=== PATIENT | female | born 2000 | race Caucasian/White ===

== ENCOUNTER 2024-02-29 14:25 | Outpatient (CLI) | payer OTHER, SELFPAY ==
[2024-02-29 16:47] LABS: HCG,Quantitative 83072 mIU/ml (0-5.42)
== END 2024-02-29 23:59 | disposition home or self-care (01) ==
LOC: LAB 14:31
PROVIDERS: Visit Provider Obstetrics & Gynecology
DX: N92.6 Irregular menstruation, unspecified (principal)
CPT/HCPCS: 36415; 84144; 84702

== ENCOUNTER 2024-03-04 16:42 | Outpatient (CLI) | payer OTHER, SELFPAY | END 2024-03-04 23:59 | disposition home or self-care (01) | LOC: LAB.DROPOF 16:42 | PROVIDERS: PCP Obstetrics & Gynecology; Visit Provider Obstetrics & Gynecology | DX: Z34.90 Encounter for supervision of normal pregnancy, unspecified, unspecified trimester (principal) | CPT/HCPCS: 87086 ==

== ENCOUNTER 2024-03-07 10:57 | Outpatient (CLI) | payer OTHER, SELFPAY ==
[2024-03-07 11:26] LABS: Basophils # 0.1 K/mm3 (0-0.2); Basophils % 0.8 % (0.1-2.0); Eosinophils # 0.1 K/mm3 (0.0-0.4); Eosinophils % 1.4 % (0.1-12.0); Hematocrit 38.6 % (37.0-47.0); Hemoglobin 13.1 g/dL (12.2-16.2); Lymphocytes # 1.9 K/mm3 (0.7-4.5); Mean Corpuscular HGB Conc 33.8 g/dL (31.8-35.4); Mean Corpuscular Hemoglobin 30.4 pg (27.0-31.2); Monocytes # 0.3 K/mm3 (0.1-1.0); Monocytes % 4.2 % (1.7-9.3); Neutrophils # 5.1 K/mm3 (1.8-7.8); Neutrophils % 68.6 % (37.0-80.0); Platelet Count 265 K/mm3 (142-424); Red Cell Distribution Width 13.6 % (11.5-17.5); White Blood Count 7.4 K/mm3 (4.8-10.8)
[2024-03-07 12:20] LABS: Glucose,Fasting 93 mg/dl (74-100)
[2024-03-07 13:04] LABS: HIV (1&2) Antibody Rapid NON REACTIVE
[2024-03-07 13:31] LABS: Glucose 1 Hour 159 mg/dL (74-100)
[2024-03-08 06:11] LABS: Rubella Antibodies, IgG 2.26 index (Immune >0.99)
[2024-03-08 09:31] LABS: HCV Ab Non Reactive (Non Reactive); Hepatitis B Surface Antigen Negative (Negative)
[2024-03-08 10:42] LABS: Rapid Plasma Reagin Ab Titer Non Reactive titer (NonRea<1:1)
== END 2024-03-07 23:59 | disposition home or self-care (01) ==
LOC: LAB 10:58
PROVIDERS: PCP Obstetrics & Gynecology; Visit Provider Obstetrics & Gynecology
DX: Z34.90 Encounter for supervision of normal pregnancy, unspecified, unspecified trimester (principal); Z86.32 Personal history of gestational diabetes
CPT/HCPCS: 36415; 82951; 85025; 86593; 86762; 86850; 87340

== ENCOUNTER 2024-03-17 09:38 | Outpatient (CLI) | payer OTHER, SELFPAY ==
[2024-03-17 10:23] LABS: Glucose,Fasting 103 mg/dl (74-100)
[2024-03-17 12:22] LABS: Glucose 1 Hour 179 mg/dL (74-100); Glucose 2 Hour 158 mg/dL (74-100)
[2024-03-17 13:27] LABS: Glucose 3 Hour 139 mg/dL (74-100)
== END 2024-03-17 23:59 | disposition home or self-care (01) ==
LOC: LAB 09:39
PROVIDERS: Visit Provider Obstetrics & Gynecology
DX: Z86.32 Personal history of gestational diabetes (principal); Z34.90 Encounter for supervision of normal pregnancy, unspecified, unspecified trimester
CPT/HCPCS: 36415; 82951

== ENCOUNTER 2024-04-14 09:57 | Outpatient (CLI) | payer OTHER, SELFPAY ==
[2024-04-14] MEDS: RHO(D) IMMUNE GLOBULIN 1,500 UNIT (300MCG) SYRINGE 300 MCG IM (11:38)
[2024-04-14 11:40] VITALS: BP 132/86; PULSE 89; RESP 18; TEMP 36.8; O2SAT 98
== END 2024-04-14 11:40 | disposition home or self-care (01) ==
LOC: LAB 09:57 → INF 11:20
PROVIDERS: Visit Provider Obstetrics & Gynecology
DX: O46.90 Antepartum hemorrhage, unspecified, unspecified trimester (principal)
CPT/HCPCS: 36415; 96372; J2790

== ENCOUNTER 2024-04-22 13:47 | Outpatient (CLI) | payer OTHER, SELFPAY ==
--- NOTE | 2024-04-22 14:04 | US_ITS ---
PROCEDURE: US OB >= 14 WEEKS FETUS CLINICAL INDICATION: Spotting/Bleeding in Early COMPARISON: No exams were available for comparison FINDINGS: Transabdominal sonographic images of the uterus were obtained. From her established due date she is 16weeks 5days. The following parameters are obtained: Viable Fetus in the cephalic presentation with an anterior placenta grade 1. No evidence of abruption. Average ultrasound age is 17weeks 5days Estimated weight 200g Cervix measures 3.1 cm. Measurements: heart Rate = 161bpm BPD = 17weeks 6days HC = 17weeks 5days AC = 17weeks 4days FL = 17weeks 5days HC/AC is 1.23 FL/BPD is 0.65 FL/AC is 0.22 91 percentile Amniotic fluid: MVP 5.62 cm No obvious anomalies evident.Kidneys, profile, choroid plexus, thalamus, cord insertion, spine, four-chamber heart, three-vessel cord appear normal. IMPRESSION: 1. Viable fetus in the cephalic presentation with an anterior placenta grade 1. 2. The placenta appears intact and there is no evidence of abruption. No evidence of placenta previa. 3. The fluid is within normal limits with an MVP 5.62 cm. 4. biometry is consistent with the dates. 5. Limited anatomical scan appears normal. 6. Repeat ultrasound in 4 weeks for complete anatomical scan. Dictated by: Ruiz Dent MD 04/22/2024 16:58 Ruiz Dent MD in [place] 04/22/2024 16:58
== END 2024-04-22 23:59 | disposition home or self-care (01) ==
LOC: RAD 13:48
PROVIDERS: Visit Provider Obstetrics & Gynecology
DX: O26.852 Spotting complicating pregnancy, second trimester (principal); O09.299 Supervision of pregnancy with other poor reproductive or obstetric history, unspecified trimester; Z86.32 Personal history of gestational diabetes; O99.210 Obesity complicating pregnancy, unspecified trimester; O24.319 Unspecified pre-existing diabetes mellitus in pregnancy, unspecified trimester
CPT/HCPCS: 76805

== ENCOUNTER 2024-07-03 18:00 | Outpatient (CLI) | payer OTHER, SELFPAY ==
[2024-07-03 19:41] VITALS: BMI 37.9
[2024-07-03 19:45] LABS: Appearance,Urine CLEAR (Clear); Bilirubin,Urine Negative (Negative); Blood, Urine 3+ (Negative); Color,Urine YELLOW (Yellow); Glucose,Urine (UA) Negative (Negative); Ketones,Urine 2+ (Negative); Leukocyte Esterase,Urine 2+ (Negative); Microscopic, Urine URINE MICROSCOPIC (MICROSCOPIC); Nitrate,Urine POSITIVE (Negative); PH,Urine 6.5 (5.0-8.5); Protein,Urine 2+ (Negative)
[2024-07-03 20:00] LABS: Amphetamine/Metha Screen,Urine Negative ng/ml (<1000)
[2024-07-03 20:01] VITALS: BP 127/85; PULSE 113; RESP 18; TEMP 37.3; O2SAT 98; BMI 37.9
[2024-07-03 20:01] LABS: Barbiturates Screen,Urine Negative ng/ml (<200); Benzodiazepines Screen,Urine Negative ng/ml (<200)
[2024-07-03 20:02] LABS: Cannabinoid Screen,Urine Negative ng/ml (<50)
[2024-07-03 20:03] LABS: Cocaine Screen,Urine Negative ng/ml (<300); Methadone Screen,Urine Negative ng/ml (<300)
[2024-07-03 20:04] LABS: Opiate Screen,Urine Negative ng/ml (<300)
[2024-07-03 20:05] LABS: Phencyclidine Screen,Urine Negative ng/ml (<25)
[2024-07-03 20:19] LABS: Bacteria,Urine 1+ /lpf; RBC,Urine TNTC #/hpf (0-3); WBC,Urine TNTC #/hpf (0-3)
[2024-07-03] MEDS: CEFTRIAXONE 1 GM 1 GM in 0.9 % SODIUM CHLORIDE 50 ML IV (20:47)
[2024-07-03 20:56] LABS: Basophils % 0.3 % (0.1-2.0); Eosinophils # 0.1 K/mm3 (0.0-0.4); Eosinophils % 0.8 % (0.1-12.0); Hematocrit 41.6 % (37.0-47.0); Hemoglobin 14.3 g/dL (12.2-16.2); Lymphocytes # 1.3 K/mm3 (0.7-4.5); Lymphocytes % 10.5 % (10-50); Mean Corpuscular HGB Conc 34.3 g/dL (31.8-35.4); Mean Corpuscular Hemoglobin 30.3 pg (27.0-31.2); Mean Corpuscular Volume 88.4 fl (81-99); Mean Platelet Volume 8.5 fl (7.4-10.4); Monocytes # 0.4 K/mm3 (0.1-1.0); Monocytes % 3.1 % (1.7-9.3); Neutrophils # 10.7 K/mm3 (1.8-7.8); Neutrophils % 85.3 % (37.0-80.0); Platelet Count 243 K/mm3 (142-424); Red Blood Count 4.71 M/mm3 (4.20-5.40); Red Cell Distribution Width 14.2 % (11.5-17.5); White Blood Count 12.6 K/mm3 (4.8-10.8)
[2024-07-03 20:59] LABS: MANUAL DIFFERENTIAL MANUAL DIFFERENTIAL (MANUAL DIFF)
[2024-07-03 21:08] LABS: Chloride 107 mmol/L (98-107)
[2024-07-03 21:09] LABS: Potassium 3.8 mmoL/L (3.5-5.1); Sodium 136 mmol/L (136-145)
[2024-07-03 21:11] LABS: Alanine Aminotransferase 48 U/L (12-78); Anion Gap 12.8 mEq/L (5-15); Aspartate Amino Transferase 43 U/L (14-36); Blood Urea Nitrogen 8 mg/dl (7-17); Carbon Dioxide 20 mmol/L (22.0-30.0); Creatinine Clearance Estimated 270 mL/min (50-200); Estimated Glomerular Filt Rate 154 ml/min (>60); GFR (African American) 187 ML/MIN (>60)
[2024-07-03 21:12] LABS: Albumin/Globulin Ratio 1.2 (1.1-1.8); Alkaline Phosphatase 98 U/L (38-126); Bilirubin,Total 0.5 mg/dl (0.2-1.3); Calcium 8.9 mg/dl (8.4-10.2); Globulin 3.3 g/dL (1.3-3.2); Glucose 91 mg/dl (74-100); Total Protein,Serum 7.3 g/dl (6.3-8.2)
[2024-07-03] MEDS: LACTATED RINGERS 1000ML 1,000 ML 999 ML IV (21:33)
--- NOTE | 2024-07-03 21:53 | P.PN_ITS ---
Subjective *Date: 07/04/24 *Time: 13:16 Interval history: Kelly May is a 24yo who presented the evening after having blood in her urine. Reports that she woke up and had a little bit of pelvic pain and pressure for about an hour after that she went to pee and noticed that there was blood in her urine. She denies any leakage of fluid, contractions, or vaginal bleeding. She does endorse good movement. She states that since being here she has had pelvic pressure that feels similar to the pressure that she has with a urinary tract infection. She reports dysuria. She denies any respiratory symptoms or GI symptoms. Exam Data for Last 24 hours Vital signs and Labs for Last 24 Hours: Temp Pulse Resp BP Pulse Ox O2 Del Method 99.2 F 113 H 18 127/85 98 Room Air 07/03/24 20:01 07/03/24 20:01 07/03/24 20:01 07/03/24 20:01 07/03/24 20:01 07/03/24 20:01 Laboratory Results - last 24 hr 07/03/24 19:20: Urine Color Yellow, Urine Appearance Clear, Urine pH 6.5, Ur Specific [place] 1.020, Urine Protein 2+ A, Urine Glucose (UA) Negative, Urine Ketones 2+, Urine Blood 3+ A, Urine Nitrate Positive, Urine Bilirubin Negative, Urine Urobilinogen 1.0, Ur Leukocyte Esterase 2+ A, Urine RBC Tntc, Urine WBC Tntc, Ur Squamous Epith Cells 3-5, Urine Bacteria 1+, Urine Opiates Screen Negative, Urine Methadone Screen Negative, Ur Barbituates Screen Negative, Ur Phencyclidine Scrn Negative, Ur Amphetamines Screen Negative, U Benzodiazepines Scrn Negative, Urine Cocaine Screen Negative, U Marijuana (THC) Screen Negative 07/03/24 20:40: WBC 12.6 H, RBC 4.71, Hgb 14.3, Hct 41.6, MCV 88.4, MCH 30.3, MCHC 34.3, RDW 14.2, Plt Count 243, MPV 8.5, Neut % (Auto) 85.3 H, Lymph % (Auto) 10.5, [place] % (Auto) 3.1, Eos % (Auto) 0.8, Baso % (Auto) 0.3, Neut # ( Auto) 10.7 H, Lymph # (Auto) 1.3, [place] # (Auto) 0.4, Eos # (Auto) 0.1, Baso # (Auto) 0.0, Sodium 136, Potassium 3.8, Chloride 107, Carbon Dioxide 20 L, Anion Gap 12.8, BUN 8, Creatinine 0.50 L, Estimated Creat Clear 270, Estimated GFR 154, Est GFR ( Amer) 187, Glucose 91, Calcium 8.9, Total Bilirubin 0.5, AST 43 H, ALT 48, Alkaline Phosphatase 98, Total Protein 7.3, Albumin 4.0, Globulin 3.3 H, Albumin/Globulin Ratio 1.2 I & O for Last 24 hours: Intake & Output 06/30/24 07/01/24 07/02/24 07/03/24 23:59 23:59 23:59 23:59 Weight 214 lb Narrative: General: patient is alert oriented in no acute distress and responds appropriately to questions. Appears to be in minimal pain. Sitting up in the bed and doing well HEENT: NCAT, EOMI, moist mucous membranes, neck supple with full ROM Cardiovascular: RRR +S1/S2, no murmurs or rubs Pulmonary: Clear to auscultation bilaterally, nonlabored breathing, symmetric chest rise Abdominal: Gravid uterus. No abdominal tenderness with palpation. No rebound or guarding Back: Negative for costovertebral angle tenderness bilaterally Extremities: no edema, no tenderness or cyanosis noted Skin: Normal turgor, intact, warm. Negative for erythema, pallor, petechia, or lesions Neurologic: Negative for sensory or motor deficit Psychiatric: Normal affect, normal thought process, good judgment and insight, no depression or anxious mood appreciated. Assessment and Plan *Assessment and plan (1) UTI (urinary tract infection): Status: Acute Category: Medical Code(s): N39.0 - Urinary tract infection, site not specified Plan On arrival the patient had a temperature of 99.2 and maternal tachycardia at 113 bpm. This improved during her triage stay here. She reported to me that she has only had bleeding with urination and no vaginal bleeding. After I discussed the case with the RN it was reported to them that the bleeding was possible of unknown origin. Decision was made to get a type and screen and give her her RhoGAM. Her UA was suggestive of urinary tract infection. She received 1 dose of Rocephin and 1 L of fluids. Given the pelvic pain and pressure and FFN was collected and was negative. Her cervical exam was closed, thick, high. Of note a CMP was checked for evaluation of creatinine. Creatinine was noted to be normal but there was an incidental small elevation in her LFTs. CBC reviewed and a small leukocytosis noted. Patient was given precautions to rest and drink lots of fluids. Strict return precautions including but not limited to: Increased pain, bleeding, decreased movement, contractions, nausea, vomiting, fevers. She will call the office in the morning so that she can have an appointment to be seen on Sunday or Sunday
[2024-07-03 22:00] VITALS: BP 121/68; PULSE 85; RESP 18; TEMP 36.8; O2SAT 100
[2024-07-03 22:09] LABS: Lymphocytes % 19 % (10-50); Monocytes % 4 % (2-9); Neutrophils % 77 % (42-76); Platelet Estimate Normal; RBC Morphology Normal; Total Cells Counted 100
[2024-07-03 22:27] LABS: Fetal Fibronectin (Rapid) Negative (Negative)
[2024-07-03] MEDS: RHO(D) IMMUNE GLOBULIN 1,500 UNIT (300MCG) SYRINGE 300 MCG IM (23:25)
== END 2024-07-03 23:35 | disposition home or self-care (01) ==
LOC: OBOUT 18:03 → OB 18:04
PROVIDERS: Visit Provider Obstetrics & Gynecology
DX: O26.893 Other specified pregnancy related conditions, third trimester (principal); O23.42 Unspecified infection of urinary tract in pregnancy, second trimester; N39.0 Urinary tract infection, site not specified; Z3A.27 27 weeks gestation of pregnancy; Z29.13 Encounter for prophylactic Rho(D) immune globulin; R31.9 Hematuria, unspecified
CPT/HCPCS: 36415; 80053; 80307; 81001; 82731; 85007; 85025; 85027; 86850; 87086; G0463; J0696; J2790; J7120

== ENCOUNTER 2024-08-29 13:50 | Outpatient (CLI) | payer OTHER, SELFPAY | END 2024-08-29 23:59 | disposition home or self-care (01) | LOC: LAB.DROPOF 09-01 13:17 | PROVIDERS: PCP Obstetrics & Gynecology; Visit Provider Obstetrics & Gynecology | DX: O24.414 Gestational diabetes mellitus in pregnancy, insulin controlled (principal); Z3A.35 35 weeks gestation of pregnancy | CPT/HCPCS: 86403 ==

== ENCOUNTER 2024-09-15 09:43 | Emergency (ER) | payer OTHER, SELFPAY ==
[2024-09-15 09:55] VITALS: BP 148/94; PULSE 78; RESP 18; TEMP 36.9; O2SAT 97; BMI 36.6
--- NOTE | 2024-09-15 10:05 | ED_ITS ---
Discharge Plan Disposition Patient Disposition: Home, Self-Care Condition: Good Prescriptions Prescriptions: New amoxicillin 500 mg capsule 500 mg PO TID 7 Days Qty: 21 0RF ciprofloxacin-dexamethasone 0.3-0.1 % drops,suspension 4 drp otic (ear) BID 7 Days Qty: 7.5 0RF Rx Instructions: in right ear as directed No Action (DME) lancets [OneTouch Delica Plus Lancet] 33 gauge misc See Rx Instructions .ROUTE .MEDSUPPLY Qty: 100 Patient Comments: USE DIRECTED TO test blood sugar FOUR TIMES DAILY Rx Instructions: As directed (DME) Dexcom G7 Sensor Device See Rx Instructions .ROUTE .MEDSUPPLY Qty: 1 Patient Comments: USE DIRECTED TO TEST BLOOD GLUCOSE LEVEL CHANGE SENSOR EVERY 10 DAYS Rx Instructions: As directed insulin glargine [Lantus Solostar U-100 Insulin] 100 unit/mL (3 mL) insulin pen 15 unit SQ DAILY Patient Comments: INJECT 10 UNITS UNDER THE SKIN INTO THE APPROPRIATE AREA DIRECTED EVERY NIGHT (DME) pen needle, diabetic [BD Ultra-Fine Mini Pen Needle] 31 gauge x 3/16 needle See Rx Instructions .ROUTE .MEDSUPPLY Qty: 1200 Patient Comments: USE DIRECTED FOUR TIMES DAILY Rx Instructions: As directed (DME) OneTouch Verio test strips Strip See Rx Instructions .ROUTE .MEDSUPPLY Qty: 10 Patient Comments: USE DIRECTED TO test blood sugar FOUR TIMES DAILY Rx Instructions: As directed (DME) blood-glucose meter [OneTouch Verio Flex meter] Mis See Rx Instructions .ROUTE .MEDSUPPLY Qty: 1 Patient Comments: USE DIRECTED FOUR TIMES DAILY test blood sugar fasting AND 2 hours AFTER each meal Rx Instructions: As directed Referrals Follow up/Referrals: Provider,Referral, MD [Primary Care Provider] - See instructions Activity Restrictions/Add. Instructions Additional Instructions/Restrictions: Take medication as prescribed Use ear drops as prescribed Follow up with your Family Doctor if needed Return if needed Clinical Impressions Clinical Impression: Otitis media Qualifiers: Otitis media type: unspecified Laterality: right Qualified Code(s): H66.91 - Otitis media, unspecified, right ear Otitis externa Qualifiers: Otitis externa type: unspecified type Chronicity: unspecified Laterality: right Qualified Code(s): H60.91 - Unspecified otitis externa, right ear Instructions Patient Instructions: Middle Ear Infection, DI for Otitis Externa Print Language Print Language: Kazakh Discharge ED Provider: Laura Salinas [facility] [place] HPI General Stated complaint: Pain in Right ear Mode of Arrival: Ambulatory Source of Information: Patient Limitations: No Limitations Time Seen by Provider: 09/15/24 10:05 Description of Symptoms (Recalled from Triage Doc. by RN): PATIENT C/O RIGHT EAR PAIN SINCE YESTERDAY. PATIENT IS HEENT Symptoms (Recalled from RN notes): Yes Resp Symptoms (Recalled from RN notes): No Skin Symptoms (Recalled from RN notes): No MS Symptoms (Recalled from RN notes): No Functional Status (Recalled from RN notes): WNL History of Present Illness Provider Complaint: Patient is 37 wks OB states that she started yesterday with severe tenderness in her right ear and hurts when she touches her ear and it is throbbing down inside her right ear Today it hurts to even touch it Related Data Home Medications ?Medication ?Instructions ?Recorded ?Confirmed blood sugar diagnostic (OneTouch #10 ea 04/29/24 09/15/24 Verio test strips) blood-glucose meter (OneTouch #1 ea 04/29/24 09/15/24 Verio Flex Meter) blood-glucose sensor (Dexcom G7 #1 ea 04/29/24 09/15/24 Sensor device) insulin glargine 100 unit/mL (3 15 unit SQ DAILY 04/29/24 09/15/24 mL) subcutaneous pen (Lantus Solostar U-100 Insulin) lancets 33 gauge (OneTouch Delica #100 ea 04/29/24 09/15/24 Plus Lancet) pen needle, diabetic 31 gauge x #1,200 04/29/24 09/15/24 3/16 (BD Ultra-Fine Mini Pen Needle) Previous Rx's ?Medication ?Instructions ?Recorded amoxicillin 500 mg capsule 500 mg PO TID 7 days #21 caps 09/15/24 ciprofloxacin 0.3 %-dexamethasone 4 drp otic (ear) BID 7 days #7.5 mL 09/15/24 0.1 % ear drops,suspension Allergies Allergy/AdvReac Type Severity Reaction Status Date / Time No Known Allergies Allergy Verified 09/12/24 08:49 Worker's Comp Is this a Worker's Comp case?: No [facility] Disclaimer: The information contained in this section may have been updated after the patient was seen, as this information can be updated by other users. Medical History Rh negative state in antepartum period Maternal pregestational diabetes classes B through R, antepartum History of gestational diabetes in prior , currently Maternal obesity affecting , antepartum Surgical History No significant past surgical history Family History Other No significant family history Social History Smoking Status: Former smoker alcohol intake: never current occupational status: employed Travel in the last 8 weeks: None Have you lived/traveled outside US in past 30 days?: No Contact w/someone who lives/traveled outside US past 30 days?: No Exposure to someone with infectious disease in past 14 days?: No Do you have a fever (greater than 100.4 F or 38 C)?: No Have you tested positive for COVID-19: No Exposed to someone with COVID-19 in past 14 days?: No Do you have a sore throat?: No Do you have a cough?: No Do you have any weakness?: No Do you have any diarrhea?: No Are you experiencing any unusual bleeding?: No Do you have any muscle aches/pain?: No Do you have any abdominal pain?: No Are you experiencing loss of taste or smell?: No ROS Obtained: Yes All systems reviewed & no additional complaints except as documented and Yes Systems reviewed as appropriate & no additional complaints except as documented ENT Ears, Nose, Mouth, and Throat: Reports system reviewed and no additional complaints, except as documented, Reports as per HPI and Reports otalgia (pain and tenderness right ear) Cardiovascular Cardiovascular: Reports system reviewed and no additional complaints, except as documented and Reports as per HPI Respiratory Respiratory: Reports system reviewed and no additional complaints, except as documented and Reports as per HPI Gastrointestinal Gastrointestingal: Reports system reviewed and no additional complaints, except as documented and as per HPI Physical Exam General General appearance: alert and in no apparent distress ENT ENT exam: Present mucous membranes moist Expanded ENT Exam External ear exam: Present pain with movement (right) and external tenderness (right) TM/Canal exam: Right TM: loss of landmarks (canal red swollen unable to visualize TM) Respiratory Respiratory exam: Present normal lung sounds bilaterally; Absent respiratory distress or wheezes Cardiovascular Cardiovascular exam: Present regular rate, normal rhythm and normal heart sounds Neurological Exam Neurological exam: Present alert, oriented X3 and normal gait Medical Decision Making Medical Records Screening: Per USPSTF and CDC recommendations, given the prevalence of disease in our region, it is our hospital?s policy to screen for HIV and viral Hepatitis for all patients aged 18 and over and those with ongoing risk factors. Dylan Inquiry Pt receiving controlled substance: No Dylan was queried for this patient: No Vital Signs: 09/15/24 09:55 Temperature 98.5 F Temperature Source Oral Pulse Rate [Left Brachial] 78 Respiratory Rate 18 Blood Pressure [Left Arm] 148/94 H Blood Pressure Mean [Left Arm] 112 Blood Pressure Source [Left Arm] Automatic Cuff Blood Pressure Position [Left Arm] Sitting 02 Sat by Pulse Oximetry 97 Oxygen Delivery Method Room Air Medical Decision Narrative: Medication discussed with pharmacy
[2024-09-15 10:22] VITALS: BP 148/94; PULSE 78; RESP 17; TEMP 36.9; O2SAT 97
== END 2024-09-15 10:23 | disposition home or self-care (01) ==
PROVIDERS: Emergency Provider Nurse Practitioner
DX: H66.91 Otitis media, unspecified, right ear (principal); H60.91 Unspecified otitis externa, right ear
CPT/HCPCS: 99212; G0381

== ENCOUNTER 2024-09-24 13:04 | Inpatient (IN) | payer OTHER, SELFPAY ==
--- NOTE | 2024-09-24 13:26 | HMH.PHAINT1 ---
Pharmacy Intervention Comments: MEDICATION RECONCILIATION COMPLETED ON PATIENT USING EXTERNAL FILL HISTORY FROM PHARMACY. -JONNATHAN EDWARDS, OSWALDOD
[2024-09-24 13:48] LABS: Microscopic, Urine URINE MICROSCOPIC (MICROSCOPIC)
[2024-09-24 14:02] VITALS: BP 118/75; PULSE 108; RESP 19; TEMP 36.9; O2SAT 99; BMI 36.6
[2024-09-24 14:05] LABS: Appearance,Urine SL CLOUDY (Clear); Blood, Urine TRACE-I (Negative); Color,Urine YELLOW (Yellow); Glucose,Urine (UA) Negative (Negative); Ketones,Urine 2+ (Negative); Leukocyte Esterase,Urine 2+ (Negative); Nitrate,Urine Negative (Negative); Protein,Urine Negative (Negative); Specific Gravity, Urine 1.025 (1.005-1.030); Urobilinogen,Urine 0.2 EU/dl (0.2)
[2024-09-24 14:06] VITALS: BMI 36.6
[2024-09-24 14:07] LABS: Bilirubin,Urine 1+ (Negative)
[2024-09-24 14:10] VITALS: BMI 36.6
[2024-09-24 14:15] LABS: Basophils % 0.4 % (0.1-2.0); Eosinophils % 0.4 % (0.1-12.0); Hematocrit 34.5 % (37.0-47.0); Hemoglobin 11.7 g/dL (12.2-16.2); Lymphocytes # 1.2 K/mm3 (0.7-4.5); Lymphocytes % 17.1 % (10-50); Mean Corpuscular HGB Conc 33.9 g/dL (31.8-35.4); Mean Corpuscular Hemoglobin 29.3 pg (27.0-31.2); Mean Corpuscular Volume 86.3 fl (81-99); Mean Platelet Volume 11.9 fl (7.4-10.4); Monocytes # 0.4 K/mm3 (0.1-1.0); Monocytes % 5.4 % (1.7-9.3); Neutrophils # 5.5 K/mm3 (1.8-7.8); Neutrophils % 76.4 % (37.0-80.0); Platelet Count 222 K/mm3 (142-424); Red Cell Distribution Width 13.7 % (11.5-17.5); White Blood Count 7.3 K/mm3 (4.8-10.8)
[2024-09-24 14:17] LABS: Barbiturates Screen,Urine Negative ng/ml (<200); Benzodiazepines Screen,Urine Negative ng/ml (<200)
[2024-09-24 14:18] LABS: Amphetamine/Metha Screen,Urine Negative ng/ml (<1000)
[2024-09-24 14:19] LABS: Cannabinoid Screen,Urine Negative ng/ml (<50); Methadone Screen,Urine Negative ng/ml (<300)
[2024-09-24 14:20] LABS: Cocaine Screen,Urine Negative ng/ml (<300)
[2024-09-24 14:21] LABS: Opiate Screen,Urine Negative ng/ml (<300); Phencyclidine Screen,Urine Negative ng/ml (<25)
[2024-09-24 14:27] LABS: Bacteria,Urine 4+ /lpf; RBC,Urine Occasional #/hpf (0-3); Squamous Epithelial Cell,Urine 20-50 #/hpf (0-5); WBC,Urine 20-50 #/hpf (0-3)
[2024-09-24] MEDS: miSOPROStol 100MCG TABLET 50 MCG PO ×2 (14:43→21:03)
[2024-09-24 14:56] LABS: POC Glucose,Bedside 96 (70-110)
[2024-09-24 21:01] VITALS: BP 118/72; PULSE 70; RESP 16; TEMP 36.7; O2SAT 100
[2024-09-24 22:22] LABS: POC Glucose,Bedside 68 (70-110)
[2024-09-25] MEDS: miSOPROStol 100MCG TABLET 50 MCG PO (03:08)
[2024-09-25 03:10] VITALS: BP 113/69; PULSE 63; RESP 17; TEMP 36.6; O2SAT 100
[2024-09-25] MEDS: LACTATED RINGERS 1000ML 1,000 ML 250 ML IV (08:35)
--- NOTE | 2024-09-25 08:54 | P.HP_ITS ---
OB - H&P: HPI Antepartum History of Present Illness Chief complaint: Scheduled induction of labor History of present illness: Ms Kelly May is a 24 yo at 39w0d who presents to [facility] L&D for scheduled induction of labor secondary to Pregestational diabetes. She has been taking insulin 15 units nightly. [facility] helped manage her care this . She has had good care. also complicated by maternal obesity. GBS negative. Last ultrasound with [facility] 09/10/24 - BPP 8/, EFW 20%ile, CARMELINA WNL, cephalic presentation. History of Present Criteria for establishing EDC:: LMP confirmed by 1st trimester US care: good care Ultrasounds: normal mid trimester US Obstetrical complications: other (pregestational diabetes) Labs Blood type: O (+) positive Rubella: immune RPR/VDRL: nonreactive GBS status: negative HBsAG: negative [facility] Disclaimer: The information contained in this section may have been updated after the patient was seen, as this information can be updated by other users. Medical History (Updated 09/25/24 @ 10:12 by Aelsia Woods DO) 39 weeks gestation of Rh negative state in antepartum period Maternal pregestational diabetes classes B through R, antepartum History of gestational diabetes in prior , currently Maternal obesity affecting , antepartum Surgical History No significant past surgical history Family History Other No significant family history Social History Smoking Status: Former smoker alcohol intake: never current occupational status: unemployed Travel in the last 8 weeks: None Have you lived/traveled outside US in past 30 days?: No Contact w/someone who lives/traveled outside US past 30 days?: No Exposure to someone with infectious disease in past 14 days?: No Do you have a fever (greater than 100.4 F or 38 C)?: No Have you tested positive for COVID-19: No Exposed to someone with COVID-19 in past 14 days?: No Do you have a sore throat?: No Do you have a cough?: No Do you have any weakness?: No Are you experiencing any nausea/vomitting?: No Do you have any diarrhea?: No Are you experiencing any unusual bleeding?: No Do you have any muscle aches/pain?: No Do you have any abdominal pain?: No Are you experiencing loss of taste or smell?: No Other Medical History Have you received the Flu Vaccine for this season: No Have you received the Pneumonia Vaccine: No Review of Systems Review of Systems Review of systems:: pertinent systems reviewed and negative unless documented below Meds Home Medications and Allergies Home Medications ?Medication ?Instructions ?Recorded ?Confirmed ?Type blood sugar diagnostic (OneTouch #10 04/29/24 09/24/24 History Verio test strips) blood-glucose meter (OneTouch #1 04/29/24 09/24/24 History Verio Flex Meter) blood-glucose sensor (DexBigvest G7 #1 04/29/24 09/24/24 History Sensor device) insulin glargine 100 unit/mL (3 15 unit SQ DAILY 04/29/24 09/24/24 History mL) subcutaneous pen (Lantus Solostar U-100 Insulin) lancets 33 gauge (OneTouch Delica #100 04/29/24 09/24/24 History Plus Lancet) pen needle, diabetic 31 gauge x #1,200 04/29/24 09/24/24 History 3/16 (BD Ultra-Fine Mini Pen Needle) New Prescriptions to Start Prescriptions: Allergies Allergy/AdvReac Type Severity Reaction Status Date / Time No Known Allergies Allergy Verified 09/22/24 10:03 OB - H&P: Exam Physical Exam Vital signs: Temp Pulse Resp BP Pulse Ox O2 Del Method 97.9 F 63 17 113/69 100 Room Air 09/25/24 03:10 09/25/24 03:10 09/25/24 03:10 09/25/24 03:10 09/25/24 03:10 09/25/24 03:10 Constitutional no acute distress and cooperative Routine HEENT Exam Head: Present normocephalic and atraumatic Eye: Absent conjunctivae pink ENT: Present mucous membranes moist Routine Neck Exam Present full ROM Routine Respiratory Exam Present CTA bilaterally and normal respiratory effort Routine Cardiovascular Exam Present RRR Routine Abdominal Exam Present soft (Gravid); Absent tenderness Routine Rectal Exam Patient deferred: visual exam Routine Exam External: Present normal urethra appearance; Absent erythema, swelling, ten derness, lesions, lacerations or vulvar erythema Routine Extremities Exam Present full ROM; Absent edema or calf tenderness Routine Neurological Exam Present alert, moving all extremities and normal speech Routine Psychiatric Exam Present normal affect and cooperative Detailed Labor and Delivery Exam Dilation (cm): 3 Effacement (%): 60 Cervix position: anterior station: -3 Consistency: soft Membranes: artificially ruptured (amniotomy performed with [place] at 0720) Amniotic fluid: clear Baseline heart rate: 130 monitor accelerations: Present monitor decelerations: None shelter variability: Average (6-10) Contraction frequency (min): 4 Tachysystole: No OB - Results Labs Labs: Short CBC 09/24/24 Range/Units 13:40 WBC 7.3 (4.8-10.8) K/mm3 Hgb 11.7 L (12.2-16.2) g/dL Hct 34.5 L (37.0-47.0) % Plt Count 222 (142-424) K/mm3 Urine 09/24/24 Range/Units 13:40 Urine Color Yellow (Yellow) Urine Appearance Sl cloudy (Clear) Urine pH 6.0 (5.0-8.5) Ur Specific [place] 1.025 (1.005-1.030) Urine Protein Negative (Negative) Urine Glucose (UA) Negative (Negative) OB - A/P Antepartum (1) 39 weeks gestation of : Status: Acute (2) Maternal pregestational diabetes classes B through R, antepartum: Status: Acute (3) Maternal obesity affecting , antepartum: Status: Acute (4) Rh negative state in antepartum period: Status: Acute Additional Plan Planning to breastfeed?: Yes Plan: induction Additional Information:: Admit to [facility] L&D for induction of labor Induction with Cytotec followed by Pitocin GBS negative Close monitoring Anticipate
[2024-09-25] MEDS: BUTORPHANOL TARTRATE 1 MG/ML VIAL IV (09:09)
[2024-09-25] MEDS: ONDANSETRON 4MG/2ML VIAL 4 MG IV (09:10)
[2024-09-25] MEDS: DEXTROSE 5%-LACTATED RINGERS 1,000 ML 125 ML IV (09:13)
[2024-09-25] MEDS: OXYTOCIN/RINGERS LACTATE 30 UNITS/500 ML BAG IV (09:14)
--- NOTE | 2024-09-25 10:55 | P.PNANES_ITS ---
[facility] Disclaimer: The information contained in this section may have been updated after the patient was seen, as this information can be updated by other users. Medical History (Updated 09/25/24 @ 10:12 by Alesia Woods DO) 39 weeks gestation of Rh negative state in antepartum period Maternal pregestational diabetes classes B through R, antepartum History of gestational diabetes in prior , currently Maternal obesity affecting , antepartum Surgical History No significant past surgical history Family History Other No significant family history Social History Smoking Status: Former smoker alcohol intake: never substance use type: denies use current occupational status: unemployed Travel in the last 8 weeks: None [facility] Anesthesia Checklist Patient Identification Patient Identification: Arm Band Structural Data Admitted From: Inpatient Planned Operative Procedure/s: Labor Epidural Consent for Planned Operative Procedure(s) Verified: Yes Verified Documents: Surgical Consent and History and Physical Additional verifications Anesthesia Reactions: No Neurological Assessment Level of Consciousness: Awake, Alert and Appropriate Anesthesia Plan Anesthesia Risk discussed: Yes Anesthesia Plan: Verified ASA Class: II Anesthesia Type: Epidural
--- NOTE | 2024-09-25 13:56 | EXP.DN ---
Delivery Note Delivery Date:: 09/25/24 Delivery Time:: 13:28 Anesthesia Type: Epidural Was labor medically induced?: No Induction method: per misoprostol protocol Gestational age (weeks): 39 delivered prior to 39 weeks?: No Gender: Male at 1 minute: 9 at 5 minutes: 9 LAC or MLE?: LAC Delivery Procedure:: Mom complete with epidural. Baby delivered spontaneously with RN at bedside. No nuchal cord. Baby placed on maternal abdomen, mouth and nares bulb suctioned, warmed/dried and stimulated. Delayed cord clamping was performed for 60 seconds. Cord was clamped and cut. Cord blood was obtained. Placenta delivered spontaneously and intact. Placental calcifications noted. Placenta will be sent to pathology for review. Second degree perineal laceration repaired with 3-0 Vicryl. Mom and baby were skin to skin and doing well after delivery. Live male baby, Man, weighing 7 lb 0 oz APGARs 9 (1 min), 9 (5 min) EBL 100 mL Placental Delivery Description: Spontaneous
[2024-09-25] MEDS: OXYTOCIN/RINGERS LACTATE 30 UNITS/500 ML BAG 40 UNITS IV (13:59)
[2024-09-25 14:30] LABS: RPR W/RFX Titers Nonreactive (Nonreactive)
[2024-09-25] MEDS: LANOLIN CREAM 40GM TP (15:32)
[2024-09-25] MEDS: BENZOCAINE-MENTHOL SPRAY 56GM CAN TP (15:32)
[2024-09-25] MEDS: IBUPROFEN 400 MG TABLET 800 MG PO ×2 (15:32→22:53)
[2024-09-25 16:31] VITALS: BP 117/65; PULSE 84; RESP 17; TEMP 36.8; O2SAT 97
[2024-09-25] MEDS: PRENATAL MULTIVITAMIN W/IRON 1 EACH PO (19:13)
[2024-09-25 19:28] LABS: POC Glucose,Bedside 176 (70-110)
[2024-09-25 21:00] VITALS: BP 120/66; PULSE 75; RESP 17; TEMP 36.8; O2SAT 98
[2024-09-25 21:11] LABS: POC Glucose,Bedside 105 (70-110)
[2024-09-25] MEDS: ACETAMINOPHEN 500MG TAB 1000 MG PO (22:53)
[2024-09-26 04:43] VITALS: BP 121/81; PULSE 81; RESP 17; TEMP 36.7; O2SAT 98
[2024-09-26 07:18] LABS: Basophils % 0.3 % (0.1-2.0); Eosinophils # 0.1 K/mm3 (0.0-0.4); Eosinophils % 0.9 % (0.1-12.0); Hematocrit 29.3 % (37.0-47.0); Hemoglobin 9.7 g/dL (12.2-16.2); Lymphocytes % 25.5 % (10-50); Mean Corpuscular HGB Conc 33.1 g/dL (31.8-35.4); Mean Corpuscular Hemoglobin 29.1 pg (27.0-31.2); Mean Platelet Volume 11.7 fl (7.4-10.4); Monocytes # 0.5 K/mm3 (0.1-1.0); Monocytes % 6.4 % (1.7-9.3); Neutrophils # 5.3 K/mm3 (1.8-7.8); Neutrophils % 66.3 % (37.0-80.0); Platelet Count 184 K/mm3 (142-424); Red Blood Count 3.33 M/mm3 (4.20-5.40); White Blood Count 7.9 K/mm3 (4.8-10.8)
[2024-09-26 07:29] LABS: Glucose,Random 68 mg/dL (74-100)
[2024-09-26 07:45] VITALS: BP 122/76; PULSE 74; RESP 16; TEMP 36.6; O2SAT 98
[2024-09-26] MEDS: IBUPROFEN 400 MG TABLET 800 MG PO (10:36)
--- NOTE | 2024-09-26 13:09 | EXP.ACUTE.PN ---
Subjective *Date: 09/26/24 *Time: 13:26 Interval history: PPD # 1 s/p Feeling well. Pain controlled. Breast feeding. Lochia is appropriate. Voiding without difficulty and passing flatus. Tolerating regular diet. Denies fever/chills, chest pain and shortness of breath. No headaches, vision changes, lightheadedness/dizziness. No lower extremity swelling. Ambulating well ad lea. Medical Exam Vital signs and Labs for Last 24 Hours: Vital Signs Temp Pulse Resp BP Pulse Ox O2 Del Method 09/26/24 07:45 97.8 F 74 16 122/76 98 Room Air 09/26/24 04:43 98.1 F 81 17 121/81 98 Room Air 09/25/24 21:00 98.3 F 75 17 120/66 98 Room Air 09/25/24 16:31 98.2 F 84 17 117/65 97 Room Air Laboratory Results - last 24 hr 09/24/24 13:40: RPR w/Rflx to Titer Nonreactive 09/25/24 19:20: POC Glucose 176 H 09/25/24 20:59: POC Glucose 105 09/26/24 07:04: WBC 7.9, RBC 3.33 L, Hgb 9.7 L, Hct 29.3 L, MCV 88.0, MCH 29.1, MCHC 33.1, RDW 14.0, Plt Count 184, MPV 11.7 H, Neut % (Auto) 66.3, Lymph % (Auto) 25.5, [place] % (Auto) 6.4, Eos % (Auto) 0.9, Baso % (Auto) 0.3, Neut # (Auto) 5.3, Lymph # (Auto) 2.0, [place] # (Auto) 0.5, Eos # (Auto) 0.1, Baso # (Auto) 0.0, Random Glucose 68 L I & O for Labs for Last 24 Hours: Intake & Output 09/23/24 09/24/24 09/25/24 09/26/24 23:59 23:59 23:59 23:59 Weight 207 lb Microbiology Reports for the Last 24 Hours: Microbiology 09/24/24 13:40 Urine,Clean Catch Urine Culture - Final Multiple organisms, suggests contamination. Head: Present atraumatic and normocephalic ENT: Present mucous membranes moist Neck: Present normal inspection and full ROM Respiratory: Present CTA bilaterally and normal respiratory effort Cardiac: Present Reg Rate and Rhythm GI: Present soft; Absent distention or tenderness Comments:: Uterine fundus firm and below umbilicus Rectal (female): Present deferred (female): Present deferred Extremities: Present full ROM and edema (+1 bilateral lower extremity edema); Absent calf tenderness Neuro: Present alert, awake and moves all extremities Assessment and Plan *Assessment and plan (1) Status post normal vaginal delivery: Status: Acute Category: Medical (2) 39 weeks gestation of : Status: Acute Category: Medical Code(s): Z3A.39 - 39 weeks gestation of (3) Maternal pregestational diabetes classes B through R, antepartum: Status: Acute Category: Medical Code(s): O24.319 - Unspecified pre-existing diabetes mellitus in , unspecified trimester (4) Maternal obesity affecting , antepartum: Status: Acute Qualifiers: Obesity type affecting : unspecified obesity Qualified Code(s): O99.210 - Obesity complicating , unspecified trimester Category: Medical Code(s): O99.210 - Obesity complicating , unspecified trimester (5) Acute blood loss anemia: Status: Acute Category: Medical Code(s): D62 - Acute posthemorrhagic anemia Plan Doing well Continue routine care Encouraged increased ambulation Plan d/c home PPD # 2
[2024-09-26 20:26] VITALS: BP 139/76; PULSE 79; RESP 18; TEMP 36.9; O2SAT 99
[2024-09-27 04:33] VITALS: BP 125/78; PULSE 80; RESP 17; TEMP 36.6; O2SAT 99
[2024-09-27] MEDS: IBUPROFEN 400 MG TABLET 800 MG PO (04:42)
[2024-09-27 08:21] VITALS: BP 129/71; PULSE 80; RESP 18; TEMP 36.8; O2SAT 98
--- NOTE | 2024-09-27 13:25 | EXP.DC.SUM ---
General Admission date:: 09/24/24 Discharge date: 09/27/24 HPI HPI HPI: Ms Kelly May is a 24 yo at 39w0d who presents to [facility] L&D for scheduled induction of labor secondary to Pregestational diabetes. She has been taking insulin 15 units nightly. [facility] helped manage her care this . She has had good care. also complicated by maternal obesity. GBS negative. Last ultrasound with [facility] 09/10/24 - BPP 8/8, EFW 20%ile, CARMELINA WNL, cephalic presentation. Hospital Course Hospital Course Hospital Course: Nelda May is a 24-year-old day #2 from a normal spontaneous vaginal delivery on 09/25/2024 at 1328. She was induced via Cytotec and Pitocin protocol and had artificial rupture membranes. She delivered a live viable male weighing 7 pounds 0 ounces and with a length of 20-1/2 inches. Apgars were 9 and 9. She is breast-feeding. On discharge her hemoglobin was 9.7 which is a decrease from 11. She denies any signs or symptoms of anemia. She has done well and has remained afebrile with her at her hospitalization. She is eating and drinking and ambulating. As her lochia is normal. She has O Rh- blood, and infant was also O-. RhoGAM not indicated. She is rubella immune and was group B streptococcus negative. Her was complicated by type 2 diabetes. It was diagnosed with a failed 1 hour at 13 weeks gestation. The patient reports that diabetes is just gestational and has not been taking insulin during the period. Her glucose has been appropriate. Will discontinue insulin and glucose checks at this time and recommend a 2-hour 75 g Glucola challenge test at 2 weeks . She will be discharged home to follow-up with Dr. Woods in 2 weeks time. She will continue with her vitamins and iron. She will take ibuprofen as well. She was given the usual instructions with respect to limiting her activity, driving and sexual activity. She was given instructions with respect to wound care. Her condition on discharge is stable and improved. Exam Data for Last 24 hours Vital signs and Labs for Last 24 Hours: Temp Pulse Resp BP Pulse Ox O2 Del Method 98.2 F 80 18 129/71 98 Room Air 09/27/24 08:21 09/27/24 08:21 09/27/24 08:21 09/27/24 08:21 09/27/24 08:21 09/27/24 08:21 I & O for Last 24 hours: Intake & Output 09/24/24 09/25/24 09/26/24 09/27/24 23:59 23:59 23:59 23:59 Weight 207 lb Microbiology Reports for the Last 24 Hours: Microbiology 09/24/24 13:40 Urine,Clean Catch Urine Culture - Final Multiple organisms, suggests contamination. Narrative: General: patient is alert oriented in no acute distress and responds appropriately to questions. Appears to be in minimal pain. Sitting up in the bed and doing well HEENT: NCAT, EOMI, moist mucous membranes, neck supple with full ROM Cardiovascular: RRR +S1/S2, no murmurs or rubs Pulmonary: Clear to auscultation bilaterally, nonlabored breathing, symmetric chest rise Abdominal: Soft, nontender, bowel sounds present. Fundus below the umbilicus extremities: no edema, no tenderness or cyanosis noted Skin: Normal turgor, intact, warm. Negative for erythema, pallor, petechia, or lesions Neurologic: Negative for sensory or motor deficit Psychiatric: Normal affect, normal thought process, good judgment and insight, no depression or anxious mood appreciated. DS: Diagnosis Discharge Diagnosis (1) Status post normal vaginal delivery: Status: Acute (2) 39 weeks gestation of : Status: Acute Code(s): Z3A.39 - 39 weeks gestation of (3) Maternal pregestational diabetes classes B through R, antepartum: Status: Acute Code(s): O24.319 - Unspecified pre-existing diabetes mellitus in , unspecified trimester (4) Maternal obesity affecting , antepartum: Status: Acute Code(s): O99.210 - Obesity complicating , unspecified trimester Qualifiers: Obesity type affecting : unspecified obesity Qualified Code(s): O99.210 - Obesity complicating , unspecified trimester (5) Acute blood loss anemia: Status: Acute Code(s): D62 - Acute posthemorrhagic anemia Meds Home Medications and Allergies Home Medications ?Medication ?Instructions ?Recorded ?Confirmed ?Type blood sugar diagnostic ([facility] #10 ea 04/29/24 09/24/24 History Verio test strips) blood-glucose meter (OneTouch #1 ea 04/29/24 09/24/24 History Verio Flex Meter) blood-glucose sensor (Dexcom G7 #1 ea 04/29/24 09/24/24 History Sensor device) insulin glargine 100 unit/mL (3 15 unit SQ DAILY 04/29/24 09/24/24 History mL) subcutaneous pen (Lantus Solostar U-100 Insulin) lancets 33 gauge (OneTouch Delica #100 ea 04/29/24 09/24/24 History Plus Lancet) pen needle, diabetic 31 gauge x #1,200 ea 04/29/24 09/24/24 History 3/16 (BD Ultra-Fine Mini Pen Needle) acetaminophen 500 mg tablet 500 mg PO Q6H PRN fever or pain 09/27/24 Rx #30 tabs ferrous sulfate 325 mg (65 mg 325 mg PO DAILY #30 tabs 09/27/24 Rx iron) tablet,delayed release ibuprofen 800 mg tablet 800 mg PO Q8H PRN pain #60 tabs 09/27/24 Rx sennosides 8.6 mg tablet (Senna 8.6 mg PO BIDP PRN Constipation 09/27/24 Rx Lax) #60 tabs New Prescriptions to Start Prescriptions: acetaminophen Juliana Castañeda ferrous sulfate Juliana Castañeda ibuprofen Juliana Castañeda sennosides [Senna Lax] Juliana Castañeda Allergies Allergy/AdvReac Type Severity Reaction Status Date / Time No Known Allergies Allergy Verified 09/22/24 10:03 Discharge Plan Disposition Patient Disposition: Home, Self-Care Discharge Order Discharge Orders: Discharge Order (Routine); Ordered 09/27/24 Ordered By: Juliana Castañeda Follow up Plan Follow up with: Alesia Woods DO [Staff Physician] - 10/09/24 3:15 pm Prescriptions/Medication Reconciliation: New sennosides [Senna Lax] 8.6 mg Tablet 8.6 mg PO BIDP PRN (Reason: Constipation) Qty: 60 2RF ibuprofen 800 mg tablet 800 mg PO Q8H PRN (Reason: pain) Qty: 60 2RF acetaminophen 500 mg tablet 500 mg PO Q6H PRN (Reason: fever or pain) Qty: 30 3RF ferrous sulfate 325 mg (65 mg iron) tablet,delayed release (DR/EC) 325 mg PO DAILY Qty: 30 3RF Continued (DME) lancets [OneTouch Delica Plus Lancet] 33 gauge misc See Rx Instructions .ROUTE .MEDSUPPLY Qty: 100 Patient Comments: USE DIRECTED TO test blood sugar FOUR TIMES DAILY Rx Instructions: As directed (DME) Dexcom G7 Sensor Device See Rx Instructions .ROUTE .MEDSUPPLY Qty: 1 Patient Comments: USE DIRECTED TO TEST BLOOD GLUCOSE LEVEL CHANGE SENSOR EVERY 10 DAYS Rx Instructions: As directed insulin glargine [Lantus Solostar U-100 Insulin] 100 unit/mL (3 mL) insulin pen 15 unit SQ DAILY Patient Comments: INJECT 10 UNITS UNDER THE SKIN INTO THE APPROPRIATE AREA DIRECTED EVERY NIGHT (DME) pen needle, diabetic [BD Ultra-Fine Mini Pen Needle] 31 gauge x 3/16 needle See Rx Instructions .ROUTE .MEDSUPPLY Qty: 1200 Patient Comments: USE DIRECTED FOUR TIMES DAILY Rx Instructions: As directed (DME) OneTouch Verio test strips Strip See Rx Instructions .ROUTE .MEDSUPPLY Qty: 10 Patient Comments: USE DIRECTED TO test blood sugar FOUR TIMES DAILY Rx Instructions: As directed (DME) blood-glucose meter [OneTouch Verio Flex meter] Misc See Rx Instructions .ROUTE .MEDSUPPLY Qty: 1 Patient Comments: USE DIRECTED FOUR TIMES DAILY test blood sugar fasting AND 2 hours AFTER each meal Rx Instructions: As directed Problem Reconciliation Problems Reviewed?: Yes Patient Discharge Instructions ACTIVITY: Continue current activity DIET: regular diet Additional Instructions: Congratulations on the delivery of your sweet baby boy. It is my privilege to be your doctor and I am so thankful I could be a part of your special day. Discharge: -Take 800 mg Ibuprofen every 8 hours as needed for pain. You can also take 500-1000 mg of Tylenol in between doses, every 6-8 hours. -Colace can be taken 1-2 times per day as you need to soften your stool. Make sure to drink at least 8 cups of water per day. -Iron supplements can make you constipated. You can take iron tablets every other day if constipation is too bad. -Nothing in the vagina for 6 weeks - no intercourse, douching, tampons. No tub baths or swimming pools. -Do not lift greater than 20pounds for 2 weeks, this is the equivalent of 2 gallons of milk. -Reasons to return to L&D or call On-Call doctor - fever (greater than 100.4) - heavy vaginal bleeding (soaking through 1 pad in less than 2 hours or passing clots that are egg sized) - vaginal discharge (malodorous and/or purulent) - severe headaches, leg tenderness/edema, or any other symptoms that warrant immediate medical attention. depression/blues - Normal to feel anxious/overwhelmed for first 2 weeks - Talk to your doctor if: anxiety lasts over 2 weeks, trouble bonding with baby, withdrawing from other family members, thoughts of harming yourself or others Juliana Castañeda, DO [facility] [phone] *Nothing in the Vagina for 6 weeks* *No strenuous activity* *No heavy lifting* *No tub baths until okay's by MD* Patient Instructions: Depression, Hemorrhage, DI for Labor and Delivery, Vaginal , DI for Pre-eclampsia, [facility] Post Discharge Instructions Print Language: Tunisian Providers Primary Care Provider: Provider,Referral Admit Provider: Ruiz Dent Attending Provider: Alesia Woods
== END 2024-09-27 14:20 | disposition home or self-care (01) | DRG 807 ==
PROVIDERS: Admitting Provider Nurse Practitioner Obstetrics & Gynecology; Visit Provider Obstetrics & Gynecology
DX: O24.424 Gestational diabetes mellitus in childbirth, insulin controlled (principal); Z37.0 Single live birth; O70.1 Second degree perineal laceration during delivery; Z3A.39 39 weeks gestation of pregnancy
CPT/HCPCS: 36415; 59025; 80307; 81001; 82947; 82962; 85025; 86592; 86850; 87086; 94761; G0283; J0595; J2405; J3010; J7120